=== PATIENT | female | born 1965 | race Caucasian/White ===

== ENCOUNTER 2018-08-21 10:37 | Outpatient (CLI) | payer OTHER | END 2018-08-21 10:38 | disposition home or self-care (01) | LOC: BICMAMMO 10:37 | PROVIDERS: ATTEND Obstetrics & Gynecology | DX: Z12.31 Encounter for screening mammogram for malignant neoplasm of breast (principal); N63.20 Unspecified lump in the left breast, unspecified quadrant; R92.1 Mammographic calcification found on diagnostic imaging of breast | CPT/HCPCS: 77063; 77067 ==

== ENCOUNTER 2018-08-30 11:03 | Outpatient (CLI) | payer OTHER, BC ==
--- NOTE | 2018-08-30 13:42 | ULT ---
LEFT BREAST ULTRASOUND: HISTORY: Mass identified in the upper outer left breast on recent mammogram. COMPARISON: Mammograms dated 08/21/2018. FINDINGS: Real-time imaging of the left breast was performed at the 2 o'clock position, 7 cm from the nipple. This shows a benign appearing 8 x 14 mm cyst. This corresponds to the size and location of the mammo graphic abnormality. IMPRESSION: BI-RADS category 2-Benign findings. POS: OFF
== END 2018-08-30 11:04 | disposition home or self-care (01) ==
LOC: BICULT 11:03
PROVIDERS: ATTEND Obstetrics & Gynecology
DX: R92.8 Other abnormal and inconclusive findings on diagnostic imaging of breast (principal)

== ENCOUNTER 2020-06-25 10:24 | Outpatient (CLI) | payer BC ==
--- NOTE | 2020-06-25 11:09 | MMO ---
Right Breast MAMMO Unilat Diag [facility]. CLINICAL HISTORY: Patient is 55 years old and is seen for additional evaluation requested at current screening. The patient has no family history of breast cancer. The patient has no personal history of cancer. VIEWS: The views performed were: right craniocaudal spot compression with tomosynthesis and right mediolateral with tomosynthesis. FILMS COMPARED: The present examination has been compared to prior imaging studies performed at [facility] on 06/15/2020, and at [facility] on 08/21/2018 and 06/25/2020. This study has been interpreted with the assistance of computer-aided detection. MAMMOGRAM FINDINGS: The breast is extremely dense, which may lower the sensitivity of mammography. Additional views were performed. The mass was shown to be a cyst on ultrasound at 9:00. Left breast mass is also a cyst on US. There are no suspicious masses, suspicious calcifications, or new areas of architectural distortion. IMPRESSION: THERE IS NO MAMMOGRAPHIC EVIDENCE OF MALIGNANCY. A ROUTINE FOLLOW-UP MAMMOGRAM IN 1 YEAR IS RECOMMENDED. THE RESULTS OF THIS EXAM WERE SENT TO THE PATIENT. ACR BI-RADS Category 2 - Benign finding MAMMOGRAPHY NOTE: 1. A negative mammogram report should not delay a biopsy if a dominant of clinically suspicious mass is present. 2. Approximately 10% to 15% of breast cancers are not detected by mammography. 3. Adenosis and dense breasts may obscure an underlying neoplasm. Reported by: LEONILA BURCIAGA MD Electonically Signed: [id number]
--- NOTE | 2020-06-25 11:24 | ULT ---
LEFT BREAST ULTRASOUND: Date: 06/25/2020 HISTORY: Abnormal mammogram. FINDINGS: Correlation is made with mammogram of today and 06/15/2020. Sonographic evaluation of the 9 o'clock position of the right breast demonstrates two adjacent cysts corresponding to the mammographic finding, measuring 12.0 mm and 7.0 mm, respectively. IMPRESSION: BI-RADS Category 2 - Benign findings. Return to annual mammographic screening. POS: OFF
--- NOTE | 2020-06-25 11:32 | ULT ---
LEFT BREAST ULTRASOUND: Date: 06/25/2020 HISTORY: Abnormal mammogram. FINDINGS: Correlation is made with mammogram of 06/15/2020. Sonographic evaluation of the left upper outer breast demonstrates a 2.0 cm cyst corresponding to the mammographic finding. IMPRESSION: BI-RADS Category 2 - Benign findings. Return to annual mammographic screening. POS: OFF
== END 2020-06-25 10:25 | disposition home or self-care (01) ==
LOC: BICMAMMO 10:24
PROVIDERS: ATTEND Obstetrics & Gynecology
DX: R92.8 Other abnormal and inconclusive findings on diagnostic imaging of breast (principal)
CPT/HCPCS: G0279

== ENCOUNTER 2024-08-12 13:25 | Outpatient (CLI) | payer BC | END 2024-08-12 13:26 | disposition home or self-care (01) | LOC: BICMAMMO 13:25 | PROVIDERS: ATTEND Physician Assistant | DX: Z12.31 Encounter for screening mammogram for malignant neoplasm of breast (principal) | CPT/HCPCS: 77063; 77067 ==